=== PATIENT | male | born 1935 | race African-American/Black ===

== ENCOUNTER 2019-02-21 12:01 | Emergency (ER) | payer OTHER, BC ==
[2019-02-21] MEDS ORDERED: AMIODARONE HCL 150 MG/3 ML VIAL ONE (12:26)
[2019-02-21] MEDS ORDERED: EPINEPHrine 1:10,000 (P-F SYR) 1 MG/10 ML DISP.SYRIN ONE (12:27)
--- NOTE | 2019-02-21 12:31 | PDOC ---
Attending Attestation - Resident Resident Name: Kasie Mann - ED Attending Attestation I have performed the following: I have examined & evaluated the patient, The case was reviewed & discussed with the resident, I agree w/resident's findings & plan, Exceptions are as noted
--- NOTE | 2019-02-21 12:37 | PDOC ---
History of Present Illness - General Stated Complaint: Cardiac Arrest Time Seen by Provider: 02/21/19 12:29 - History of Present Illness Initial Comments: 02/21/19 12:32 The patient is an 83 year old male with a PMH of Atrial Fibrillation (on Warfarin), Bile Duct Carcinoma, HTN was BIBA in cardiac arrest. Found @ 11 a.m. unresponsive, hypotensive. EMS found patient to be Bradycardic in 50's s/p Levophed Agonal breathing - s/p Atropine and transcutaneous pacing; Ventricular Fibrillation x2 - s/p Epinephrine x3, Ca x1, Amiodarone - Asystole FULL CODE Past History - Past Medical History Allergies/Adverse Reactions: Allergies Allergy/AdvReac Type Severity Reaction Status Date / Time No Known Allergies Allergy Verified 04/13/16 10:39 Home Medications: Ambulatory Orders Amlodipine Besylate [Norvasc -] 5 mg PO DAILY 04/13/16 Atorvastatin Ca [Lipitor] 40 mg PO HS 04/13/16 Triamterene/Hydrochlorothiazid [Triamterene-Hctz 37.5-25 mg Tb] 1 each PO DAILY 04/13/16 Warfarin Sodium [Coumadin] 10 mg PO HS 04/13/16 Cardiac Disorders: Yes (STENT PLACEMENT?) HTN: Yes - Surgical History Cardiac Surgery: Yes (STENT PLACEMENT?) - Suicide/Smoking/Psychosocial Hx Smoking History: Never smoked Review of Systems - Review of Systems Able to Perform ROS?: No (unresponsive, intubated) *Physical Exam - Physical Exam Comments: Unresponsive male, intubated HEENT: B/L pupil dilitation, intubated CV: no palpable pulse w/o compression assist Respiratory: CLTA B/L (intubated on vent) Medical Decision Making - Medical Decision Making 02/21/19 12:33 83 year old male in cardiac arrest. S/p VFib with defibrillation, asystole Intubated field; ET tube confirmed by glidescope CPR continued ACLS Epinephrine x3 Bicarb x2 Calcium x1 Dextrose x1 Pulse checks @ 12:08, 12:12 12:15, 12:18, 12:20 - with no palpable pulse, asystole on monitor, no cardiac activity on ultrasound Time of : 12:20 02/21/19 12:36 Call placed to patient's - Sheila Null 02/21/19 12:[address] Kecia Anderson Requests Dr. Cooper fill out certificate 02/21/19 15:13 Call placed to [employer], maura case; MD number: [phone] Examiner: Dominick Parrish *DC/Admit/Observation/Transfer Diagnosis at time of Disposition: Cardiac arrest - Discharge Dispostion Disposition: - Referrals Referrals: Kecia Anderson MD [Primary Care Provider] - - Patient Instructions - Post Discharge Activity
--- NOTE | 2019-02-21 13:38 | PDOC ---
Documentation entered by Flavia Banks SCRIBE, acting as scribe for Luz Candelaria MD. Luz Candelaria MD: This documentation has been prepared by the Darren pugh Sammi, SCRIBE, under my direction and personally reviewed by me in its entirety. I confirm that the documentation accurately reflects all work, treatment, procedures, and medical decision making performed by me. Attending Attestation - Resident Resident Name: Kasie Mann - ED Attending Attestation I have performed the following: I have examined & evaluated the patient, The case was reviewed & discussed with the resident, I agree w/resident's findings & plan, Exceptions are as noted - HPI HPI: 02/21/19 12:42 The patient is an 83 year old male, with a significant PMH of HTN, HL, and Afib (on Coumadin), who was BIBA with CPR in progress. As per EMS, patient was found unresponsive at [facility], hypotensive, and bradycardic at around 11:30am and was given levophed. EMS reports he was agonally breathing with a very faint , and slow pulse when they arrive. EMS administered atropine with no response and attempted to transcutaneously pace the patient. Pt then went into cardiac arrest at 11:43a and intubated with a 7.5 tube to 25 at the lip. Pt was noted to be in Vfib during pulse check twice and was defibrillated twice. EMS administered 3 epinephrine, 1 calcium, 300mg amio, and 500 normal saline in the field prior to arrival. EMS reports asystole after initial Vfib rhythm. As per CT, patient is full code. - Physicial Exam PE: 02/21/19 13:28 GENERAL: unresponsive HEAD: No signs of trauma EYES: blown pupils ENT: intubated to 25 at the lip LUNGS: Breath sounds equal, clear to auscultation bilaterally. No wheezes, and no crackles HEART: no heart sounds ABDOMEN: Soft, nondistended EXTREMITIES: No edema, extremities cold NEUROLOGICAL: unresponsive SKIN: Warm, Dry, normal turgor, no rashes or lesions noted. - Critical Care Time Total Critical Care Time: 30 Critical Care Statement: The care of this patient involved high complexity decision making to prevent further life threatening deterioration of the patient 's condition and/or to evaluate & treat vital organ system(s) failure or risk of failure. - Medical Decision Making 02/21/19 13:33 83yo M presents to the ED in cardiac arrest Pt found unresponsive, bradycardic, had a vfib arrest, defibrillated x2 then degenerated into asystole Pt given epi, calcium in field and intubated, transported to the ED On arrival, tube confirmed via glidescope IO placed CPR/ACLS continued Despite epi, calcium, D50, Mg, bicarb, pt remained in asystole Bedside sono with normal RV, no pericardial effusion In light of prolonged downtime, asystole, time of was called 12:20p has been notified to come to ED by Dr. Mann, is on her way in with their son. Dr. Kecia Anderson (PMD) requests we ask Dr. Cooper to complete certificate
== END 2019-02-21 17:31 | disposition expired ==
LOC: JER 12:01
PROC: 5A12012 Performance of Cardiac Output, Single, Manual (ICD-10-PCS; principal; 2019-02-21)
PROC: B246ZZZ Ultrasonography of Right and Left Heart (ICD-10-PCS; 2019-02-21)
DX: I46.9 Cardiac arrest, cause unspecified (principal); I25.10 Atherosclerotic heart disease of native coronary artery without angina pectoris; I10 Essential (primary) hypertension; Z95.5 Presence of coronary angioplasty implant and graft; I48.91 Unspecified atrial fibrillation; Z79.01 Long term (current) use of anticoagulants; Z85.09 Personal history of malignant neoplasm of other digestive organs
CPT/HCPCS: 92950; 93303; 99282-25